=== PATIENT | male | born 1980 ===

== ENCOUNTER 2018-09-12 07:40 | Outpatient (CLI) | payer OTHER ==
[~2018-09-12] VITALS: Ht 152.4 cm; Wt 85.3 kg
== END 2018-09-12 08:02 | disposition home or self-care (01) ==
LOC: OFIC 805 07:40
DX: H70.13 Chronic mastoiditis, bilateral (principal); H90.6 Mixed conductive and sensorineural hearing loss, bilateral; H90.0 Conductive hearing loss, bilateral; H69.83 Other specified disorders of Eustachian tube, bilateral

== ENCOUNTER 2021-05-01 11:30 | Emergency (ER) | payer OTHER ==
[~2021-05-01] VITALS: Ht 175.3 cm; Wt 90.7 kg
[2021-05-01] MEDS ORDERED: AMOX-CLAV 875-1 EACH PO (15:46)
[2021-05-01] MEDS ORDERED: TUSSIN DM SYRU118 ML PO (15:46)
== END 2021-05-01 16:30 | disposition home or self-care (01) ==
LOC: ER 11:30
DX: B34.9 Viral infection, unspecified (principal); Z20.822 Contact with and (suspected) exposure to COVID-19